=== PATIENT | male | born 1970 | race Caucasian/White ===

== ENCOUNTER 2018-06-12 09:39 | Day surgery (SDC) | payer MEDICAID, OTHER ==
[2018-06-11 16:54] LABS: BASOPHILS % (AUTO) 0.3 % (0-1); EOSINOPHILS # (AUTO) 0.1 X10'3 (0-0.9); EOSINOPHILS % (AUTO) 2.2 % (0-6); LYMPHOCYTES # (AUTO) 2.2 X10'3 (1.1-4.8); LYMPHOCYTES % (AUTO) 33.2 % (21-51); MEAN CORPUSCULAR HEMOGLOBIN 29.5 PG (27.0-31.0); MEAN CORPUSCULAR HGB CONC 32.6 % (33.0-36.5); MEAN CORPUSCULAR VOLUME 90.2 FL (78-98); MEAN PLATELET VOLUME 9.3 FL (7.4-10.4); MONOCYTES # (AUTO) 0.5 X10'3 (0-0.9); MONOCYTES % (AUTO) 6.8 % (2-12); NEUTROPHILS # (AUTO) 3.9 X10'3 (1.8-7.7); NEUTROPHILS % (AUTO) 57.5 % (42-75); PRE OP HEMATOCRIT 48.7 % (42.0-52.0); PRE OP HEMOGLOBIN 15.9 g/dL (14.0-17.9); PRE OP PLATELET COUNT 175 X10'3 (140-440); RED BLOOD COUNT 5.39 X10'6 (4.70-6.10); RED CELL DISTRIBUTION WIDTH 11.8 % (11.5-14.5)
[2018-06-11 17:07] LABS: ALBUMIN 3.8 G/DL (3.4-5.0); ALBUMIN/GLOBULIN RATIO 1.1 (1.1-1.5); ALKALINE PHOSPHATASE 100 IU/L (46-116); BLOOD UREA NITROGEN 15 MG/DL (7-18); BUN/CREATININE RATIO 16.3 (5.4-32.0); CALCIUM 8.8 MG/DL (8.5-10.1); CHLORIDE 101 MMOL/L (99-107); CREATININE 0.92 MG/DL (0.60-1.10); PRE OP ALT 48 U/L (30-65); PRE OP ANION GAP 10 (8-16); PRE OP AST 17 U/L (10-37); PRE OP BILIRUB, TOTAL 0.4 MG/DL (0.0-1.0); PRE OP POTASSIUM 3.9 MMOL/L (3.4-5.1); PRE OP SODIUM 138 MMOL/L (135-145); TOTAL CARBON DIOXIDE 26.8 MMOL/L (24-32); TOTAL PROTEIN 7.3 G/DL (6.4-8.2); eGFR 88 ML/MIN
[2018-06-11 17:09] LABS: PRE OP GLUCOSE 239 MG/DL (70-104)
[2018-06-11 17:10] LABS: HEMOGLOBIN A1C 7.9 % (4.5-6.2)
[2018-06-12] VITALS (9 sets, daily range): BP systolic 128–152; BP diastolic 76–98
[~2018-06-12] VITALS: Ht 177.8 cm; Wt 81.6 kg
[~2018-06-12 09:39] MED LIST: ASPI81TA30 PO; GLIP5TAB26 PO; METF-438 PO; clindamycin 600mg/D5W 50ml 50 ML IV ONE; famotidine 20mg tablet PO ONE; ringers solution, lacted 1,000 ML IV SCH
[2018-06-12] MEDS ORDERED: BUPIVAcaine/PF 2.5mg/ml (0.25%) 10ml vial ONE (09:52)
[2018-06-12] MEDS ORDERED: fentaNYL/PF 50MCG/1 ML 2ML syringe ONE ×2 (10:00→11:30)
[2018-06-12] MEDS ORDERED: midazolam 2 mg/2 ml injection ONE ×2 (10:01→10:51)
[2018-06-12] MEDS ORDERED: insulin regular, human vial - multi-dose ONE (10:23)
[2018-06-12] MEDS ORDERED: LIDOcaine 0.5% (5mg/ml) 50ml vial ONE (10:24)
[2018-06-12] MEDS ORDERED: labetalol 20mg/4ml (5mg/ml) syringe IV ONE (10:36)
[2018-06-12] MEDS ORDERED: ondansetron/PF 4mg/2ml inj ONE ×2 (10:44→11:30)
--- NOTE | 2018-06-12 11:20 | NUR ---
Received from OR via bed, accompanied by Anesthesiologist. Report received. Initial physical assessment done and recorded.
[2018-06-12] MEDS ORDERED: propofol inj 20 ML IV ONE (11:30)
--- NOTE | 2018-06-12 12:30 | NUR ---
Discharge criteria met, discharge instructions given, demonstrates verbal understanding. Discharged home in good condition. No complains of pain during post op period, no pain meds given no complaints
== END 2018-06-12 12:30 | disposition home or self-care (01) ==
LOC: PAS 09:39
PROVIDERS: ATTEND Orthopaedic Surgery Hand Surgery
DX: G56.21 Lesion of ulnar nerve, right upper limb (principal); M47.22 Other spondylosis with radiculopathy, cervical region; E11.9 Type 2 diabetes mellitus without complications; K21.9 Gastro-esophageal reflux disease without esophagitis; E23.2 Diabetes insipidus; Z72.89 Other problems related to lifestyle; Z90.89 Acquired absence of other organs; Z88.0 Allergy status to penicillin; Z79.82 Long term (current) use of aspirin; Z79.84 Long term (current) use of oral hypoglycemic drugs; Z79.891 Long term (current) use of opiate analgesic; Z79.899 Other long term (current) drug therapy; Z98.890 Other specified postprocedural states; Z82.61 Family history of arthritis; Z82.49 Family history of ischemic heart disease and other diseases of the circulatory system; Z84.0 Family history of diseases of the skin and subcutaneous tissue
CPT/HCPCS: 36415; 64718; 80053; 82948; 83036; 85025; 93005; A6449; J2001; J2250; J2405; J2704; J3010; J3490; J1815; J7120